=== PATIENT | male | born 1970 | race Caucasian/White ===

== ENCOUNTER → 2016-09-02 | Outpatient (CLI) | payer BC ==
[2016-09-03 11:19] LABS: CALCIUM LEVEL 9.1 MG/DL (8.5-10.1); FREE T4 1.2 NG/DL (0.76-1.46); PHOSPHORUS LEVEL 6.1 MG/DL (2.5-4.9)
== END ==
LOC: M LRY 16:39
PROVIDERS: ATTEND Internal Medicine Endocrinology, Diabetes & Metabolism
DX: E89.0 Postprocedural hypothyroidism (principal)

== ENCOUNTER → 2017-03-17 | Outpatient (CLI) | payer OTHER, BC ==
--- NOTE | 2017-03-18 05:35 | REP ---
RIGHT KNEE, COMPLETE: 03/17/2017. Clinical history: Right knee trauma at work. Findings: There were no prior studies. Five views show small spurs medial and patellofemoral joint margins. There is a suprapatellar joint effusion on the lateral view. No visible or displaced fracture or loose body. The patella has a bipartite configuration which is an anatomic normal variant. Impression: 1. Bipartite patella as anatomic variation. 2. Minor degenerative changes of the knee but there is a suprapatellar effusion. This may imply internal derangement versus synovitis. MRI may be helpful. Signed by Frank Rider MD 03/18/2017 11:12 A
== END ==
LOC: M WUC 17:50
PROVIDERS: ATTEND Physician Assistant
DX: M25.561 Pain in right knee (principal)

== ENCOUNTER → 2019-08-20 | Outpatient (REF) | payer BC ==
[2019-08-20 13:43] LABS: FREE T4 1.42 NG/DL (0.76-1.46); RHEUMATOID FACTOR QUANT < 10.0 IU/ML (<15.0); TOTAL PROTEIN 7.2 GM/DL (6.4-8.2)
[2019-08-20 13:44] LABS: FOLATE 11.9 NG/ML; VITAMIN B12 LEVEL 992 PG/ML
== END ==
LOC: M SFHCRHEU 08:43
PROVIDERS: ATTEND Internal Medicine
DX: G62.9 Polyneuropathy, unspecified (principal); D47.2 Monoclonal gammopathy; M25.50 Pain in unspecified joint

== ENCOUNTER → 2019-11-23 | Outpatient (CLI) | payer BC ==
[2019-11-23 11:40] LABS: CALCIUM LEVEL 8.3 MG/DL (8.5-10.1); PHOSPHORUS LEVEL 4.8 MG/DL (2.5-4.9); THYROID STIMULATING HORMONE 6.48 uIU/ML (0.358-3.740)
[2019-11-23 15:40] LABS: ALBUMIN 3.9 GM/DL (3.2-5.2); BILIRUBIN,TOTAL 0.8 MG/DL (0.2-1.0); CREATININE FOR GFR 1.5 MG/DL (0.70-1.30); GLOMERULAR FILTRATION RATE 53.2 (>60); POTASSIUM SERUM 4.6 MEQ/L (3.5-5.1); TOTAL PROTEIN 7.7 GM/DL (6.4-8.2)
== END ==
LOC: M LRY 09:13
PROVIDERS: ATTEND Internal Medicine Endocrinology, Diabetes & Metabolism
DX: E89.0 Postprocedural hypothyroidism (principal); E83.51 Hypocalcemia; I10 Essential (primary) hypertension

== ENCOUNTER → 2019-11-25 | Outpatient (CLI) | payer BC ==
[2019-11-30 00:06] LABS: SOMATOMEDIN-C INSULIN GROWTH 140 ng/mL (67-205)
== END ==
LOC: M LRY 12:41
PROVIDERS: ATTEND Internal Medicine Endocrinology, Diabetes & Metabolism
DX: E11.65 Type 2 diabetes mellitus with hyperglycemia (principal)

== ENCOUNTER → 2024-04-05 | Outpatient (CLI) | payer BC ==
[2024-04-05 19:45] LABS: CALCIUM LEVEL 7.6 MG/DL (8.5-10.1)
[2024-04-05 19:48] LABS: THYROID STIMULATING HORMONE 0.235 uIU/ML (0.55-4.78); TOTAL 25(OH) VITAMIN D 22.9 NG/ML (20.0-100.0)
[2024-04-05 19:50] LABS: FREE T4 1.63 NG/DL (0.89-1.76)
== END ==
LOC: M PLALAB 15:37
PROVIDERS: ATTEND Nurse Practitioner Family
DX: E89.0 Postprocedural hypothyroidism (principal); E83.51 Hypocalcemia

== ENCOUNTER → 2024-10-29 | Outpatient (CLI) | payer BC | LOC: M WUC 15:39 | PROVIDERS: ATTEND Nurse Practitioner Family | DX: M79.642 Pain in left hand (principal); S62.357A Nondisplaced fracture of shaft of fifth metacarpal bone, left hand, initial encounter for closed fracture; X58.XXXA Exposure to other specified factors, initial encounter; Y92.9 Unspecified place or not applicable; Y93.9 Activity, unspecified; Y99.9 Unspecified external cause status ==